=== PATIENT | male | born 1965 | race Two or more races ===

== ENCOUNTER 2021-02-25 19:29 | Emergency (ER) | payer OTHER ==
[~2021-02-25] VITALS: Ht 167.6 cm; Wt 90.7 kg
[~2021-02-25 19:29] MED LIST: LOTREL 10/20 MG1 CAP PO; SYNTHROID100 MCG PO; TENORETIC 100 T1 TAB PO
[2021-02-25] MEDS ORDERED: PANADOL (20:24)
[2021-02-25] MEDS ORDERED: FLONASE ALLERG9.9 ML NASAL (21:34)
[2021-02-25] MEDS ORDERED: PROBIOTIC1 EAC2 PO (21:35)
== END 2021-02-25 21:57 | disposition home or self-care (01) ==
LOC: ER 19:29
DX: J32.8 Other chronic sinusitis (principal)

== ENCOUNTER 2021-04-18 21:15 | Emergency (ER) | payer OTHER ==
[~2021-04-18] VITALS: Ht 165.1 cm; Wt 95.3 kg
[~2021-04-18 21:15] MED LIST changes: +FLONASE ALLERG9.9 ML NASAL; +PANADOL; +PROBIOTIC1 EAC2 PO
== END 2021-04-19 00:51 | disposition home or self-care (01) ==
LOC: ER 21:15
DX: J06.9 Acute upper respiratory infection, unspecified (principal); J01.90 Acute sinusitis, unspecified; I10 Essential (primary) hypertension; Z03.818 Encounter for observation for suspected exposure to other biological agents ruled out

== ENCOUNTER 2021-05-30 23:44 | Emergency (ER) | payer OTHER ==
[~2021-05-30] VITALS: Ht 167.6 cm; Wt 90.7 kg
[2021-05-31] MEDS ORDERED: PROAIR RESPICL90 MCG IH (04:39)
[2021-05-31] MEDS ORDERED: MUCINEX DM ER1 EAC1 PO (04:39)
[2021-05-31] MEDS ORDERED: MELATONIN10 MG PO (04:39)
[2021-05-31] MEDS ORDERED: ACETAMINOPHEN650 M2 PO (04:39)
[2021-05-31] MEDS ORDERED: VITAMIN C WIT1000 MG PO (04:39)
[2021-05-31] MEDS ORDERED: BUDESONIDE0.5 MG/2 M IH (04:41)
[2021-05-31] MEDS ORDERED: LEVALBUTER1.25 MG/0. IH (04:41)
== END 2021-05-31 06:17 | disposition home or self-care (01) ==
LOC: ER 23:44
DX: U07.1 COVID-19 (principal)

== ENCOUNTER 2021-11-21 07:44 | Emergency (ER) | payer OTHER ==
[~2021-11-21] VITALS: Ht 167.6 cm; Wt 95.3 kg
[~2021-11-21 07:44] MED LIST changes: +ACETAMINOPHEN650 M2 PO; +BUDESONIDE0.5 MG/2 M IH; +LEVALBUTER1.25 MG/0. IH; +MELATONIN10 MG PO; +MUCINEX DM ER1 EAC1 PO; +PROAIR RESPICL90 MCG IH; +VITAMIN C WIT1000 MG PO
[2021-11-21] MEDS ORDERED: LEVSIN/SL0.125 MG PO (14:34)
[2021-11-21] MEDS ORDERED: MIRALAX510 GM PO (14:34)
== END 2021-11-21 14:59 ==
LOC: ER 07:44
DX: K57.90 Diverticulosis of intestine, part unspecified, without perforation or abscess without bleeding (principal); K59.00 Constipation, unspecified; R10.32 Left lower quadrant pain; I10 Essential (primary) hypertension